=== PATIENT | female | born 1995 | race Caucasian/White ===

== ENCOUNTER → 2018-09-01 | Outpatient (CLI) | payer OTHER ==
--- NOTE | 2018-09-01 10:29 | PCVCIMAG ---
APPROVED REPORT Study performed: 09/01/2018 08:43:46 EXAM: Comprehensive 2D, Doppler, and color-flow Echocardiogram Patient Location: Out-Patient BSA: 1.69 2D Dimensions IVSd: 9.85 (7-11mm)LVOT Diam: 21.38 (18-24mm) LVDd: 42.89 mm PWd: 10.65 (7-11mm)Ascending Ao: 36.63 (22-36mm) LVDs: 25.85 (25-40mm) Left Atrium: 31.59 (27-40mm) Aortic Root: 24.94 mm LV Single Plane 4CH: 53.34 % LV Single Plane 2CH: 55.16 % Biplane EF: 55.0 % Volumes Left Atrial Volume (Systole) Single Plane 4CH: 21.13 mLSingle Plane 2CH: 33.60 mL Biplane LA Volume: 31.00 mLLA ESV Index: 18.00 mL/m2 Aortic Valve AoV Peak Chai.: 1.93 m/s AO Peak Gr.: 14.78 mmHgLVOT Max P.15 mmHg AO Mean Gr.: 8.94 mmHgLVOT Mean P.77 mmHg AO V2 Mean: 1.43 m/sLVOT Max V: 0.88 m/s AO V2 VTI: 39.06 cmLVOT Mean V: 0.64 m/s RAYSA (VTI): 1.74 [id number] V1 VTI: 18.92 cm RAYSA Vmax: 1.62 cm2 AI Vmax: 4.69 m/sSV (LVOT): 67.90 mL AI [place]: 1.89 m/s2 AI PHT: 728.29 ms Mitral Valve E/A Ratio: 1.5 MV Decel. Time: 142.59 ms MV E Max Chai.: 1.06 m/s MV A Chai.: 0.72 m/s IVRT: 79.58 ms TDI E/Lateral E': 5.58E/Medial E': 13.25 Medial E' Chai.: 0.08 m/s Lateral E' Chai.: 0.19 m/s Pulmonary Valve PV Peak Chai.: 1.01 m/sPV Peak Gr.: 4.06 mmHg Pulmonary Vein P Vein S: 0.47 m/sP Vein A: 0.34 m/s P Vein D: 0.56 m/sP Vein A Dur.: 86.5 msec P Vein S/D Ratio: 0.84 Tricuspid Valve TR Peak Chai.: 1.85 m/s TR Peak Gr.: 13.74 mmHg TV Vmax: 0.90 m/sPA Pressure: 21.00 mmHg Left Ventricle The left ventricle is normal size. There is normal LV segmental wall motion. Borderline concentric left ventricular hypertrophy. Left ventricular systolic function is normal. The left ventricular ejection fraction is within the normal range. LVEF is 55-60%. The left ventricular diastolic function is normal. Right Ventricle The right ventricle is normal size. The right ventricular systolic function is normal. Atria The left atrium size is normal. The right atrium size is normal. Aortic Valve Aortic valve is trileaflet. The Aortic valve is mildly sclerotic. Mild aortic regurgitation. No hemodynamically significant valvular aortic stenosis. Highest mean aortic valve gradient is 8.9 mmHg. Peak aortic valve gradient is 15 mmHg. Calculated RAYSA by the continuity equation is 1.7_cm2. Mitral Valve The mitral valve is normal in structure. There is no mitral valve regurgitation noted. No evidence of mitral valve stenosis. Tricuspid Valve The tricuspid valve is normal in structure. Trace tricuspid regurgitation with a PA pressure of 21 mmHg. No pulmonary hypertension. Pulmonic Valve The pulmonary valve is normal in structure. There is no pulmonic valvular regurgitation. Great Vessels The aortic root is normal in size. The ascending aorta is normal in size. Aortic arch is normal in caliber. IVC is normal in size and collapses >50% with inspiration. Pericardium There is no pericardial effusion. There is no pleural effusion. <Conclusion> The left ventricle is normal size. LVEF is 55-60%. Aortic valve is trileaflet. The Aortic valve is mildly sclerotic. Mild aortic regurgitation. No hemodynamically significant valvular aortic stenosis. Highest mean aortic valve gradient is 8.9 mmHg. Peak aortic valve gradient is 15 mmHg. Calculated RAYSA by the continuity equation is 1.7_cm2. The mitral valve is normal in structure. There is no mitral valve regurgitation noted. The tricuspid valve is normal in structure. Trace tricuspid regurgitation with a PA pressure of 21 mmHg. No pulmonary hypertension. The pulmonary valve is normal in structure. There is no pericardial effusion. There is no pleural effusion.
== END | disposition home or self-care (01) ==
LOC: PCVCIMAG 12:51
PROVIDERS: ATTEND Internal Medicine
DX: I10 Essential (primary) hypertension (principal); R01.1 Cardiac murmur, unspecified
CPT/HCPCS: 93306